=== PATIENT | female | born 1985 | race Caucasian/White ===

== ENCOUNTER 2018-11-16 15:35 | Emergency (ER) | payer MEDICAID ==
[~2018-11-16] VITALS: Ht 162.6 cm; Wt 58.2 kg
[2018-11-16 15:44] VITALS: BP 149/60
--- NOTE | 2018-11-16 15:52 | NUR ---
PT AMBULATED TO BED 8
--- NOTE | 2018-11-16 15:55 | NUR ---
33 Y FEMALE BIB SELF WITH C/O TIGHTINING CHEST PAIN NON RADIATING, STERNAL PAIN 4/10 X4 DAYS, +NAUSEA, HX OF ANXIETY. DX OF UTI TWO WEEKS AGO WITH TX OF KEFLEX. PT STATES SHE IS ON ALCOHOL DETOX. VSS AT THIS TIME. AA0X4. BED IS DOWN, LOCKED, BED RAIL X1, ERMD NOTIFIED. PMH- ANXIETY
--- NOTE | 2018-11-16 16:19 | NUR ---
PT STARTED ON 2 L NC, PT STATES SHE FEELS LIKE SHE IS HAVING AN ANXIETY ATTACK
[2018-11-16] MEDS ORDERED: KETOROLAC 30 MG/ML VIAL IVP ONE (16:50)
[2018-11-16] MEDS ORDERED: LORazepam 2 MG/ML VIAL IVP ONE (16:50)
--- NOTE | 2018-11-16 17:18 | NUR ---
PT AMB TO BATHROOM
--- NOTE | 2018-11-16 17:26 | NUR ---
RAD AT BEDSIDE
[2018-11-16 17:41] LABS: BASOPHILS % (AUTO) 0.5 % (0.0-2.0); EOSINOPHILS # (AUTO) 0.1 K/uL (0-0.4); EOSINOPHILS % (AUTO) 1.1 % (0.0-4.0); HEMATOCRIT 40.3 % (36-48); HEMOGLOBIN 13.4 g/dL (12.0-16.0); LYMPHOCYTES # (AUTO) 1.3 K/uL (2.5-16.5); LYMPHOCYTES % (AUTO) 15.7 % (20.5-51.1); MEAN CORPUSCULAR HEMOGLOBIN 27 pg (27-31); MEAN CORPUSCULAR HGB CONC 33 g/dL (33-37); MEAN CORPUSCULAR VOLUME 82.2 fL (80-94); MONOCYTES # (AUTO) 0.5 K/uL (0.8-1.0); NEUTROPHILS # (AUTO) 6.3 K/uL (1.8-7.7); NEUTROPHILS % (AUTO) 76.7 % (42.2-75.2); PLATELET COUNT (AUTO) 216 K/uL (140-450); RED CELL DISTRIBUTION WIDTH 13.9 % (11.6-13.7); WHITE BLOOD COUNT (AUTO) 8.2 K/uL (4.8-10.8)
[2018-11-16 17:51] LABS: BARBITURATE, URINE NEG. ng/ml (NEG <=200); BENZODIAZEPINE, URINE NEG. ng/mL (NEG <=200); CANNABINOID, URINE NEG. ng/mL (NEG <=50); COCAINE, URINE NEG. ng/mL (NEG <=300); OPIATE, URINE NEG. ng/mL (NEG <=2000); PHENCYCLIDINE SCREEN,URINE NEG. ng/mL (NEG <=25)
[2018-11-16 17:57] LABS: ANION GAP 17.2 (8-16); CARBON DIOXIDE 21.8 mmol/L (21-32); CHLORIDE 101 mmol/L (98-107); CREATININE 1.1 mg/dL (0.6-1.3); GFR ARICAN-AMERICAN 73 mL/min (>90); GLUCOSE 90 mg/dL (74-106); PROTHROMBIN TIME 9.9 secs (10.8-13.4); SODIUM SERUM 136 mmol/L (136-145); UREA NITROGEN, BLOOD 17 mg/dL (7-18)
--- NOTE | 2018-11-16 18:00 | NUR ---
VSS AT THIS TIME. AA0X4. PT SITTING IN BED
[2018-11-16 18:03] LABS: ALBUMIN 4.1 g/dL (3.4-5.0); ASPARTATE AMINOTRANSFERASE 22 U/L (15-37); MAGNESIUM 1.9 mg/dL (1.8-2.4); TOTAL BILIRUBIN 0.5 mg/dL (0.0-1.0)
[2018-11-16 18:05] LABS: D-DIMER < 100 ng/ml (0-400)
--- NOTE | 2018-11-16 18:48 | NUR ---
PT SLEEPING IN BED
--- NOTE | 2018-11-16 18:53 | NUR ---
PT TAKEN OF NC, OXYGEN AT 98%
[2018-11-16 19:15] VITALS: BP 135/67
--- NOTE | 2018-11-16 19:17 | NUR ---
Patient discharged with v/s stable. Written and verbal after care instructions given and explained. Patient alert, oriented and verbalized understanding of instructions. Ambulatory with steady gait. All questions addressed prior to discharge. ID band removed. Patient advised to follow up with PMD. Rx of VISTARIL given. Patient educated on indication of medication including possible reaction and side effects. Opportunity to ask questions provided and answered.
== END 2018-11-16 19:17 | disposition home or self-care (01) ==
LOC: MED 15:35
DX: F41.0 Panic disorder [episodic paroxysmal anxiety] (principal); R06.4 Hyperventilation; F10.239 Alcohol dependence with withdrawal, unspecified; R79.0 Abnormal level of blood mineral; Y90.0 Blood alcohol level of less than 20 mg/100 ml
CPT/HCPCS: 36415; 36600; 71045; 80053; 80305; 81025; 82803; 83735; 84484; 85025; 85379; 85610; 96374; 96375; 99284; G0482; J1885; J2060; Q0092; 93005